=== PATIENT | female | born 1950 | race Caucasian/White ===

== ENCOUNTER 2023-08-14 10:01 | Day surgery (SDC) | payer MEDICARE ==
[2023-08-10 12:57] VITALS: BMI 24.7
[~2023-08-14 10:01] MED LIST: LACTATED RINGERS 1,000 ML IV SCH; LIDOCAINE 1% (10MG/ML) FOR IV START INTRADERMA PRN
[2023-08-14] MEDS ORDERED: LACTATED RINGERS 1,000 ML IV ONE (10:27)
[2023-08-14 10:43] VITALS: TEMP 97.5
[2023-08-14] MEDS ORDERED: LIDOCAINE 1% INJ 10MG/ML (20 ML MDV) ONE (11:37)
[2023-08-14] MEDS ORDERED: PROPOFOL 10 MG/ML 20 ML VIAL IV ONE (11:37)
--- NOTE | 2023-08-14 11:42 | P.GSHP ---
History of Present Illness H&P Date: 08/14/23 Chief Complaint: GERD 72-year-old female with complaints of chronic reflux and intermittent dysphagia. Symptoms fairly well controlled with omeprazole. Last colonoscopy 2016 and history of tubular adenoma. 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 no blood transfusion reaction Smoking Status: Never smoker - Past Family History Mother Family Medical History: No Reported History Medications and Allergies Home Medications Medication Instructions Recorded Confirmed Type Aspirin [Adult Low Dose Aspirin EC] 81 mg PO DAILY 07/23/17 08/10/23 History Atorvastatin [Lipitor] 80 mg PO HS 07/23/17 08/10/23 History Cholecalciferol [Vitamin D3] 2,000 unit PO DAILY 07/23/17 08/10/23 History Verapamil HCl [Verelan Pm] 100 mg PO HS 07/23/17 08/10/23 History Vitamin E (Dl,Tocopheryl Acet) 400 unit PO DAILY 07/23/17 08/10/23 History [Vitamin E] Denosumab [Prolia] 60 mg SQ QMONTHLY 08/10/23 08/10/23 History Omeprazole 20 mg PO DAILY 08/10/23 08/10/23 History Allergies Allergy/AdvReac Type Severity Reaction Status Date / Time No Known Allergies Allergy Verified 08/10/23 10:31 Surgical - Exam Vital Signs Temp Pulse Resp BP Pulse Ox 97.5 F L 55 L 18 164/72 98 08/14/23 10:30 08/14/23 10:30 08/14/23 10:30 08/14/23 10:30 08/14/23 10:30 Physical exam: General: Well-developed, well-nourished HEENT: Normocephalic, sclerae nonicteric Abdomen: Nontender, nondistended Extremities: No edema Neuro: Alert and oriented Assessment and Plan (1) GERD (gastroesophageal reflux disease) Narrative/Plan: Will proceed with EGD and possible dilation. Current Visit: Yes Status: Acute Code(s): K21.9 - GASTRO-ESOPHAGEAL REFLUX DISEASE WITHOUT ESOPHAGITIS SNOMED Code(s): 323178063
--- NOTE | 2023-08-14 11:49 | P.PCN ---
Date of Procedure: 08/14/23 Procedure(s) Performed: Preoperative Dx: GERD Postoperative Dx: Gastritis, small gastric ulcer, hiatal hernia, distal esophagitis, Schatzki's ring Procedure: EGD with Bx Anesthesia: Sedation Endoscopist: Dr. Lozada Specimens: Antral ulcer, GE junction Endoscopic Procedure: The patient was on the endoscopy table in the left decubitus position. The Olympus gastroscope was inserted into the oropharynx and passed under direct visualization to the region of the third portion of the duodenum. From that point the scope was slowly withdrawn inspecting all surfaces carefully. There were no neoplastic inflammatory or polypoid lesions throughout the duodenum. The pylorus was widely patent. The stomach was carefully inspected. There was gastritis present with a small superficial ulcer in the antrum. A biopsy took place of the ulcer. Retroflexion revealed a moderate size hiatal hernia. The GE junction was present 3 cm proximal to the diaphragm. At the GE junction there was slight narrowing and mild non- circumferential inflammation. A biopsy of the GE junction took place. The remainder the esophagus appear normal. The patient was then taken to the recovery room in stable condition per anesthesia guidelines. Recommendations: Continue antiacid therapy. Await biopsy results. Consider repeat upper and lower endoscopy 6 months to confirm resolution of the ulcer and evaluate for recurrent polyps. Possible dilation if symptoms of dysphagia increase.
[2023-08-14 12:14] VITALS: RESP 12
[2023-08-14 12:37] VITALS: BP 171/79; PULSE 50
== END 2023-08-14 12:42 | disposition home or self-care (01) ==
LOC: ORWHC2ENDO 10:01
PROVIDERS: ATTEND Surgery
DX: K29.50 Unspecified chronic gastritis without bleeding (principal); K22.2 Esophageal obstruction; K21.00 Gastro-esophageal reflux disease with esophagitis, without bleeding; K44.9 Diaphragmatic hernia without obstruction or gangrene; K25.9 Gastric ulcer, unspecified as acute or chronic, without hemorrhage or perforation; E78.5 Hyperlipidemia, unspecified; G43.909 Migraine, unspecified, not intractable, without status migrainosus; Z86.73 Personal history of transient ischemic attack (TIA), and cerebral infarction without residual deficits; Z98.890 Other specified postprocedural states; Z79.82 Long term (current) use of aspirin; Z79.899 Other long term (current) drug therapy
CPT/HCPCS: 88305; 43239; J2001; J2704